=== PATIENT | male | born 1990 | race Caucasian/White ===

== ENCOUNTER 2018-09-14 19:11 | Emergency (ER) | payer OTHER, MEDICAID, SELFPAY ==
[2018-09-14 19:25] VITALS: BP 129/82; PULSE 86; RESP 18; TEMP 37.2; O2SAT 96; BMI 38.7
--- NOTE | 2018-09-14 19:30 | DI.RAD.S_ITS ---
PROCEDURE: XR ANKLE LT MIN 3V INDICATIONS: Rolled L ankle, lateral pain. TECHNIQUE: 3 views of the ankle were acquired. COMPARISON: None. FINDINGS: Bones: No fractures or dislocations. Ankle mortise is normally aligned. No suspicious bony lesions. Soft tissues: Mild swelling at the lateral malleolus. No tibiotalar joint effusion. Achilles tendon appears normal. IMPRESSION: No fracture or dislocation. Dictated by: Km Barnard M.D. on 09/14/2018 at 19:47 Approved by: Km Barnard M.D. on 09/14/2018 at 19:48
--- NOTE | 2018-09-14 19:52 | ED_ITS ---
HPI - Extremity Injury (Lower) <TERRA Reaves - Last Filed: 09/14/18 21:13> General Chief Complaint: Extremity Injury, Lower Stated Complaint: LEFT ANKLE PAIN HEARD POP Time Seen by Provider: 09/14/18 19:17 Source: patient Mode of arrival: ambulatory Limitations: no limitations History of Present Illness HPI Narrative: This is a 28-year-old male, smoker, presents to ED with chief complain of left lateral ankle pain and swelling. He reports stepped on a hold and inverted his left foot about 2 hours before to ED. Patient reports he was unable to bear his weight or ambulate due to severe pain on his ankle. He denies pain in his left foot, left knee, left hip. He reports he can move his toes and has sensation. The patient reports had sprained both ankles in the past. He had fractured bilateral femurs and had surgical repair done in the past. Related Data Home Medications Medication Instructions Recorded Confirmed No Known Home Medications 09/14/18 09/14/18 Allergies Allergy/AdvReac Type Severity Reaction Status Date / Time codeine Allergy Hives Verified 09/14/18 19:36 Penicillins Allergy Hives Verified 09/14/18 19:36 Review of Systems <TERRA Reaves - Last Filed: 09/14/18 21:13> Review of Systems General: Denies fever, chills, fatigue, malaise, sweats. HEENT: Denies sinus pain, ear pain, sore throat, difficulty swallowing, dizziness. Respiratory: Denies dyspnea, cough, wheezing, hemoptysis, sputum. Cardiovascular: Denies chest pain, palpitations, orthopnea, edema. Gastrointestinal: Denies nausea, vomiting, abdominal pain, diarrhea, consti pation, melena. : Denies dysuria, frequency, incontinence, hematuria, urinary retention. Musculoskeletal: See HPI Skin: Denies rash, skin lesions, or other. Neurologic: Denies weakness, headache, numbness, change in speech, confusion, seizures, incoordination. Psychiatric: No concerning psychosocial issues. 12-point review of systems is negative except for those stated above. PFSH <TERRA Reaves - Last Filed: 09/14/18 21:13> Medical History Ankle sprain (Chronic) Femur fracture, left (Chronic) Femur fracture, right (Chronic) Social History (Updated 09/14/18 @ 21:00 by TERRA Reaves) Smoking Status: Current every day smoker substance use type: does not use Exam <TERRA Reaves - Last Filed: 09/14/18 21:13> Narrative Exam Narrative: General appearance: well developed, well nourished, in no acute distress. Head: normocephalic, atraumatic, no scalp lesions, non-tender. Eye: pupil equal, round. EOMI. Nose: nares patent. Oral: mucosa moist. Neck/Thyroid: neck supple, full range of motion, no visible masses. Skin: no suspicious rashes, lesions over visible areas. Warm and dry. Heart: no clubbing, no cyanosis, no edema. Lungs: Breathing even and unlabored. No stridor. No accessory muscles used. Chest: normal shape and expansion. Abdomen: non-obese, non-distended. Neurologic: alert and oriented. Cognitive exam, PORTFOLIO CONSULTANT and PNS grossly intact on informal exam. Psych: good eye contact, normal affect. Initial Vital Signs Initial Vital Signs: Vital Signs Temperature 98.9 F 09/14/18 19:25 Pulse Rate 86 09/14/18 19:25 Respiratory Rate 18 09/14/18 19:25 Blood Pressure 129/82 09/14/18 19:25 Pulse Oximetry 96 09/14/18 19:25 Extrem Right upper extremity: normal to inspection Left upper extremity: normal to inspection Right lower extremity: normal to inspection Left lower extremity: normal capillary refill and ankle Details: abnormal to inspection, tenderness, swelling Details: diffusely and laterally and abnormal ROM Details: pain with active ROM <Jose Tinoco DO - Last Filed: 09/14/18 22:25> Initial Vital Signs Initial Vital Signs: Vital Signs Temperature 98.9 F 09/14/18 19:25 Pulse Rate 86 09/14/18 19:25 Respiratory Rate 18 09/14/18 19:25 Blood Pressure 129/82 09/14/18 19:25 Pulse Oximetry 96 09/14/18 19:25 Procedures <TERRA Reaves - Last Filed: 09/14/18 21:13> Orthopedic Splinting/Casting L lateral ankle: Side: left Lower Extremity Injury Location: ankle Lower Extremity Immobilizer: AirCast and Luke wrap Other Orthopedic Equipment: other Post splinting neuro exam: intact Post splinting vascular exam: intact Placed by: Nursing Additional Comments: The patient declines crutches when offered reports not going to be using it due to his bilateral shoulder pain. He was offered a walker he also declined this. We discussed in length that bearing weight may worsen his ankle pain and may cause pain in his right foot, ankle, knee, hip. H e verbalized the understanding. Course <TERRA Reaves - Last Filed: 09/14/18 21:13> Orders Ordered: ED Orders 09/14/18 19:30 XR ankle LT min 3V Stat Discontinued Medications Acetaminophen (Tylenol) 975 mg PO NOW ONE Stop: 09/14/18 19:52 Last Admin: 09/14/18 20:03 Dose: 975 mg Ibuprofen (Advil) 800 mg PO NOW ONE Stop: 09/14/18 19:51 Last Admin: 09/14/18 20:04 Dose: 800 mg Vital Signs - 8 hr 09/14/18 19:25 Temperature 98.9 F Pulse Rate 86 Respiratory Rate 18 Blood Pressure 129/82 Pulse Oximetry 96 <Jose Tinoco DO - Last Filed: 09/14/18 22:25> Orders Ordered: ED Orders 09/14/18 19:30 XR ankle LT min 3V Stat Discontinued Medications Acetaminophen (Tylenol) 975 mg PO NOW ONE Stop: 09/14/18 19:52 Last Admin: 09/14/18 20:03 Dose: 975 mg Ibuprofen (Advil) 800 mg PO NOW ONE Stop: 09/14/18 19:51 Last Admin: 09/14/18 20:04 Dose: 800 mg Vital Signs - 8 hr 09/14/18 19:25 Temperature 98.9 F Pulse Rate 86 Respiratory Rate 18 Blood Pressure 129/82 Pulse Oximetry 96 MDM - Extremity Injury (Lower) <TERRA Reaves - Last Filed: 09/14/18 21:13> Differential Diagnosis Likely ankle sprain and strain and ankle fracture Medical Records Attestation: I reviewed the patient's medical records. Imaging Data XR-L ankle: Radiologist's impression: [facility] DATE TYPE STATUS AUTHOR Hx 09/14/18 19:30 Call,KmaDle Collins 28, M0 1990 REG ER, ED.LOC - Main ED: R13 167.64cm 108.862kg BMI: 38.7kg/m? Extremity Injury, Lower Search Chart No Data to Display Hives Hives No Data to Display Today 19:25 Dale Laughlin 28 M [address] [address] XRay Report Signed Patient: Dale Laughlin CMR#: [id number] : 1990Acct:[id number] Age/Sex: 28 / MDate of Service: 09/14/18 Loc: ED Accession Number: [id number] Procedure: XR ankle LT min 3V Ordering Provider: Jose Tinoco D.O. PROCEDURE: XR ANKLE LT MIN 3V INDICATIONS: Rolled L ankle, lateral pain. TECHNIQUE: 3 views of the ankle were acquired. COMPARISON: None. FINDINGS: Bones: No fractures or dislocations. Ankle mortise is normally aligned. No suspicious bony lesions. Soft tissues: Mild swelling at the lateral malleolus. No tibiotalar joint effusion. Achilles tendon appears normal. IMPRESSION: No fracture or dislocation. Dictated by: Km Barnard M.D. on 09/14/2018 at 19:47 Approved by: Km Barnard M.D. on 09/14/2018 at 19:48 MDM Narrative Medical decision making narrative: This is a 28-year-old male who presents with left lateral ankle pain and swelling after he stepped in a hole and inverted his affected leg. He denies pain in his left foot, knee, hip and denies any other injuries from this. He reports he had previous injuries to his bilateral ankle s, foot, femur which had surgical repaired. X-ray test was done and it indicates no fracture, effusion, dislocation. It shows mild swelling at the lateral malleolus and the Achilles tendon appears to be normal as well. Patient was medicated with Tylenol 975 mg, ibuprofen 800 mg and ice pack was applied for pain and swelling while in ED. His affected ankle was wrapped with Luke bandage and reinforced with prefabricated air cast for support and immobilization. Patient was offered the crutches for mobility for ambulation, the patient declines this and states not going to be using this. He states he has a bad shoulder and it makes his shoulder pain worse. We discussed in length about if he hops around the pain in his left ankle may get worse, he may develop pain in his right leg to compensate this. The patient verbalized the understanding and again declined the crutches. Return precautions were discussed with the patient. Patient advised to use [id number] Tylenol, Motrin as needed and RICE therapy. Patient verbalized the understanding and agrees with treatment plan. Discharge Plan Departure Patient Disposition: Home Clinical Impression: Ankle sprain and strain Discharge Date/Time: 09/14/18 21:26 Interventions: ED Discharge Assessment Last Done: 09/14/18 21:25 Instructions: DI for Ankle Sprain Activity Restrictions/Additional Instructions: You have been diagnosed with [ L lateral ankle sprain. There was no signs of fracture or bony lesion per x-ray test today]. What to do: *Take your medications as directed. Please take [id number] Tylenol and/or Motrin as needed for you're pain and swelling. Use ice pack for next couple of days and elevate affected leg above chest level. Use the Luke wrap for compression and air cast for support. You have declined crutches at this time, however, the pain may get worse with bearing weight on affected ankle or foot. Please rest you're left ankle next couple of days. *Follow up with your primary care provider at [facility] in [facility] in 2- 3 days, call for an appointment. Let them know you were seen in the ED and that we asked you to be seen in follow up. *Return to ED if you have any new, worsening, or concerning symptoms, such as [tingling/numbness, redness, warmth, severe pain, unable to move toes on left foot]. Prescriptions: No Action No Known Home Medications RF: 0 <Jose Tinoco DO - Last Filed: 09/14/18 22:25> Cosgreg ED Attending Hannah Attestation: I was available for consultation during this patient's emergency department encounter
[2018-09-14] MEDS: ACETAMINOPHEN 325 MG TABLET 975 MG PO (20:03)
[2018-09-14] MEDS: IBUPROFEN 400 MG TABLET 800 MG PO (20:04)
== END 2018-09-14 21:26 | disposition home or self-care (01) ==
PROVIDERS: Emergency Provider Nurse Practitioner Family
DX: S93.402A Sprain of unspecified ligament of left ankle, initial encounter (principal); S96.912A Strain of unspecified muscle and tendon at ankle and foot level, left foot, initial encounter; X50.9XXA Other and unspecified overexertion or strenuous movements or postures, initial encounter
CPT/HCPCS: 73610; 99282; 99283

== ENCOUNTER 2018-10-10 11:15 | Emergency (ER) | payer OTHER, SELFPAY ==
[2018-10-10 11:20] VITALS: BP 142/98; PULSE 82; RESP 14; TEMP 36.6; O2SAT 97
--- NOTE | 2018-10-10 11:23 | DI.RAD.S_ITS ---
PROCEDURE: XR FINGER RT MIN 2V INDICATIONS: nail gun nail throught right thumb, now removed TECHNIQUE: AP hand, 2 views of the first finger(s) acquired. COMPARISON: None. FINDINGS: Bones: No fractures or dislocations. No suspicious bony lesions. Soft tissues: Linear punctate increased densities are noted overlying the soft tissues at the level of the proximal first phalanx. IMPRESSION: 1. No visualized acute fracture or dislocation. However, if clinical concern and/or pain persist, short interval imaging followup in 7-10 days is recommended, as occult injury cannot be definitively excluded. 2. Densities overlying the soft tissue of the first phalanx. These could represent radiopaque foreign bodies or prior areas of small dystrophic calcifications or other artifact. No priors are available for comparison. Dictated by: Harini Oneil M.D. on 10/10/2018 at 11:49 Approved by: Harini Oneil M.D. on 10/10/2018 at 11:54
[2018-10-10] MEDS: ACETAMINOPHEN 325 MG TABLET 975 MG PO (11:38)
[2018-10-10] MEDS: IBUPROFEN 400 MG TABLET 800 MG PO (11:38)
--- NOTE | 2018-10-10 11:57 | ED.UPPEXIN ---
HPI - Extremity Injury (Upper) <TERRA Reaves - Last Filed: 10/11/18 00:15> General Chief Complaint: Extremity Injury, Upper Stated Complaint: right hand thum pierced with metal Time Seen by Provider: 10/10/18 11:23 Source: patient Mode of arrival: ambulatory Limitations: no limitations History of Present Illness HPI narrative: This is a 28-year-old male, smoker, presents to ED with right thumb injury from a nail gun. The injury happened during work. Patient reports large size needle went through and through from volar aspect near the radial side distal phalanx to dorsal aspect. Patient had removed the nail when he arrived to ED but brought picture of that he took with his phone. Patient states some tingling and numbness to his thumb. He is able to move his thumb without difficulty. Right dominant hand. Last Tetanus immunization is unsure but maybe in between 6-7 years. Related Data Previous Rx's Medication Instructions Recorded doxycycline hyclate 100 mg PO Q12H 7 Days #14 cap 10/10/18 Allergies Allergy/AdvReac Type Severity Reaction Status Date / Time codeine Allergy Hives Verified 10/10/18 11:22 Penicillins Allergy Hives Verified 10/10/18 11:22 Review of Systems <TERRA Reaves - Last Filed: 10/11/18 00:15> Review of Systems Narrative: General: Denies fever, chills, fatigue, malaise, sweats. HEENT: Denies sinus pain, ear pain, sore throat, difficulty swallowing, dizziness. Respiratory: Denies dyspnea, cough, wheezing, hemoptysis, sputum. Cardiovascular: Denies chest pain, palpitations, orthopnea, edema. Gastrointestinal: Denies nausea, vomiting, abdominal pain, diarrhea, constipation, melena. : Denies dysuria, frequency, incontinence, hematuria, urinary retention. Musculoskeletal: See HPI Skin: Denies rash, skin lesions, or other. Neurologic: Denies weakness, headache, numbness, change in speech, confusion, seizures, incoordination. Psychiatric: No concerning psychosocial issues. 12-point review of systems is negative except for those stated above. PFSH <TERRA Reaves - Last Filed: 10/11/18 00:15> Social History Smoking Status: Current every day smoker substance use type: does not use Exam <TERRA Reaves - Last Filed: 10/11/18 00:15> Narrative Exam Narrative: General appearance: well developed, well nourished, in no acute distress. Head: normocephalic, atraumatic, no scalp lesions, non-tender. Eye: pupil equal, round. EOMI. Nose: nares patent. Oral: mucosa moist. Neck/Thyroid: neck supple, full range of motion, no visible masses. Skin: Puncture wound on right thumb with no active bleeding. No suspicious rashes, lesions over visible areas. Warm and dry. Heart: no clubbing, no cyanosis, no edema. Lungs: Breathing even and unlabored. No stridor. No accessory muscles used. Chest: normal shape and expansion. Abdomen: non-obese, non-distended. Neurologic: alert and oriented. Cognitive exam, CLOTHING DESIGNER and PNS grossly intact on informal exam. Psych: good eye contact, normal affect. Initial Vital Signs Initial Vital Signs: Vital Signs Temperature 97.9 F 10/10/18 11:20 Pulse Rate 82 10/10/18 11:20 Respiratory Rate 14 10/10/18 11:20 Blood Pressure 142/98 H 10/10/18 11:20 Pulse Oximetry 97 10/10/18 11:20 Extrem Right upper extremity: hand Details: abnormal to inspection, normal capillary refill, tendon exam normal, tenderness, vascular exam Details: radial pulse present and normal capillary refill, normal ROM of fingers, swelling and puncture wound (R distal thumb) <Ashleigh Mcdowell DO - Last Filed: 10/11/18 07:32> Initial Vital Signs Initial Vital Signs: Vital Signs Temperature 97.9 F 10/10/18 11:20 Pulse Rate 82 10/10/18 11:20 Respiratory Rate 14 10/10/18 11:20 Blood Pressure 142/98 H 10/10/18 11:20 Pulse Oximetry 97 10/10/18 11:20 Scores <TERRA Reaves - Last Filed: 10/11/18 00:15> GCS [place] coma scale eye opening: Spontaneous [place] coma scale verbal response: Orientated [place] coma scale motor response: Obey commands Popeye coma scale total score: 15 Course <TERRA Reaves - Last Filed: 10/11/18 00:15> Orders Ordered: Discontinued Medications Acetaminophen (Tylenol) 975 mg PO NOW ONE Stop: 10/10/18 11:23 Last Admin: 10/10/18 11:38 Dose: 975 mg Documented by: LORI Bacitracin (Bacitracin) 1 applic TOP NOW ONE Stop: 10/10/18 12:39 Last Admin: 10/10/18 13:09 Dose: 1 applic Documented by: JUANY Diphtheria/Tetanus/Acell Pertussis (Adacel) 0.5 ml IM .ONCE ONE Stop: 10/10/18 12:52 Last Admin: 10/10/18 13:01 Dose: 0.5 ml Documented by: JUANY Ibuprofen (Advil) 800 mg PO NOW ONE Stop: 10/10/18 11:23 Last Admin: 10/10/18 11:38 Dose: 800 mg Documented by: LORI Vital Signs Vital signs: Vital Signs - 8 hr 10/10/18 11:20 Temperature 97.9 F Pulse Rate 82 Respiratory Rate 14 Blood Pressure 142/98 H Pulse Oximetry 97 <Ashleigh Mcdowell DO - Last Filed: 10/11/18 07:32> Orders Ordered: Discontinued Medications Acetaminophen (Tylenol) 975 mg PO NOW ONE Stop: 10/10/18 11:23 Last Admin: 10/10/18 11:38 Dose: 975 mg Documented by: LORI Bacitracin (Bacitracin) 1 applic TOP NOW ONE Stop: 10/10/18 12:39 Last Admin: 10/10/18 13:09 Dose: 1 applic Documented by: JUANY Diphtheria/Tetanus/Acell Pertussis (Adacel) 0.5 ml IM .ONCE ONE Stop: 10/10/18 12:52 Last Admin: 10/10/18 13:01 Dose: 0.5 ml Documented by: JUANY Ibuprofen (Advil) 800 mg PO NOW ONE Stop: 10/10/18 11:23 Last Admin: 10/10/18 11:38 Dose: 800 mg Documented by: LORI Vital Signs Vital signs: Vital Signs - 8 hr 10/10/18 11:20 Temperature 97.9 F Pulse Rate 82 Respiratory Rate 14 Blood Pressure 142/98 H Pulse Oximetry 97 MDM - Extremity Injury (Upper) <TERRA Reaves - Last Filed: 10/11/18 00:15> Differential Diagnosis Differential diagnosis: Likely other (Fracture of thumb, puncture soft tissue injury) Medical Records Attestation: I reviewed the patient's medical records. Imaging Data XR-Finger R: Radiologist's impression: [address] [address] XRay Report Signed Patient: Clint Laughlin CMR#: [id number] : 1990Acct:[id number] Age/Sex: 28 / MDate of Service: 10/10/18 Loc: ED Accession Number: [id number] Procedure: XR finger RT min 2V Ordering Provider: Ashleigh Mcdowell D.O. PROCEDURE: XR FINGER RT MIN 2V INDICATIONS: nail gun nail throught right thumb, now removed TECHNIQUE: AP hand, 2 views of the first finger(s) acquired. COMPARISON: None. FINDINGS: Bones: No fractures or dislocations. No suspicious bony lesions. Soft tissues: Linear punctate increased densities are noted overlying the soft tissues at the level of the proximal first phalanx. IMPRESSION: 1. No visualized acute fracture or dislocation. However, if clinical concern and/or pain persist, short interval imaging followup in 7-10 days is recommended, as occult injury cannot be definitively excluded. 2. Densities overlying the soft tissue of the first phalanx. These could represent radiopaque foreign bodies or prior areas of small dystrophic calcifications or other artifact. No priors are available for comparison. Dictated by: Harini Oneil M.D. on 10/10/2018 at 11:49 Approved by: Harini Oneil M.D. on 10/10/2018 at 11:54 [facility] Narrative Medical decision making narrative: Patient accidentally appears his right thumb with a nail gun of while at work. X-ray shows no acute findings such as fracture of his thumb. Patient's soak his finger in Hibiclens solution and water for 15 minutes. Wound has been dressed by nursing staff using antibiotic medication appointment. Patient reports numbness to his right thumb this may due to puncture injury to right thumb nerve. Pain with active range of motion on his right thumb but there is no deficit noted. Tdap vaccination has been updated today. We discussed return precautions such as signs and symptoms for infection. Patient opted for taking prophylactic oral antibiotic medication. Patient advised to keep his dressing clean and intact until it heals. Patient agrees with treatment plan and no further questions were expressed at this time. L& I documentation initiated. Discharge Plan Departure Patient Disposition: Home Clinical Impression: Puncture wound Discharge Date/Time: 10/10/18 13:31 Instructions: DI for Puncture Wound Activity Restrictions/Additional Instructions: You have been diagnosed with [puncture wound. X-ray test does not show fracture to right thumb at this time. If her pain persists for 2 weeks, you should be re-evaluated and consider for repeat x-ray test.]. What to do: *Take your medications as directed. Please start antibiotic medications today and complete a course of antibiotic medication unless this gives shoe allergy reaction. Please take [id number] Tylenol and or Motrin as needed for pain and inflammation. Use ice pack and elevated you're affected hand next couple of days. *Follow up with your primary care provider at [facility] in 2-3 days, call for an appointment. Let them know you were seen in the ED and that we asked you to be seen in follow up. *Return to ED if you have any new, worsening, or concerning symptoms, such as [worsening redness, swelling, warmth to touch, pain, pus-like discharge, fever, chest pain, breathing difficulty, or any acute concerns]. Prescriptions: New doxycycline hyclate 100 mg capsule 100 mg PO Q12H 7 Days Qty: 14 RF: 0 <Ashleigh Mcdowell DO - Last Filed: 10/11/18 07:32> Sign Out Provider Sign Out Attestation: I was immediately available in the department for consultation. This documentation has been reviewed and I agree with assessment and plan. Supervised by Ashleigh Mcdowell DO
[2018-10-10] MEDS: TET,DIPH,PERTUSS(ACELL),VAC/PF 0.5 ML SYRINGE IM (13:01)
[2018-10-10] MEDS: BACITRACIN OINT 0.9 GM PCKT 1 APPLIC TOP (13:09)
== END 2018-10-10 13:31 | disposition home or self-care (01) ==
PROVIDERS: Emergency Provider Nurse Practitioner Family
DX: S61.031A Puncture wound without foreign body of right thumb without damage to nail, initial encounter (principal); Z23 Encounter for immunization; Y99.0 Civilian activity done for income or pay
CPT/HCPCS: 73140; 90471; 99282; 99283; 90715